=== PATIENT | male | born 1970 | race African-American/Black ===

== ENCOUNTER 2022-06-04 10:28 | Inpatient (IN) | payer OTHER ==
[2022-06-04 10:59] VITALS: BMI 36.2
[2022-06-04] MEDS ORDERED: NICOTINE POLACRILEX 2 MG GUM BC PRN (11:09)
[2022-06-04] MEDS ORDERED: LOPERAMIDE HCL 2 MG CAPSULE PO PRN (11:09)
[2022-06-04] MEDS ORDERED: guaiFENesin 200 MG/10 ML 10 ML UNIT-DOSE CUPS PO PRN (11:09)
[2022-06-04] MEDS ORDERED: BENZOCAINE/MENTHOL (CHLORASEPTIC ) LOZENGE MM PRN (11:09)
[2022-06-04] MEDS ORDERED: POLYETHYLENE GLYCOL (HEALTHYLAX) 3350 17 GM PACKET PO PRN (11:09)
[2022-06-04] MEDS ORDERED: MAGNESIUM HYDROX 2400MG/30ML ORAL SUSPENSION 30 ML CUP PO PRN (11:09)
[2022-06-04] MEDS ORDERED: P-EPHED 60MG/TRIPROLIDI 2.5MG TABLET PO PRN (11:09)
[2022-06-04] MEDS ORDERED: NICOTINE 10 MG CARTRIDGE (INHALER) IH PRN (11:09)
[2022-06-04] MEDS ORDERED: BENZOCAINE 28 GM HEMORRHOIDAL OINTMENT RC PRN (11:14)
[2022-06-04 15:41] LABS: HEMATOCRIT 40.2 % (35.4-49); HEMOGLOBIN 12.3 GM/dL (11.7-16.9); MCH 22.3 pg (25.7-33.7); MCHC 30.6 g/dl (32.0-35.9); MEAN CELL VOLUME 72.9 fl (80-96); MEAN PLT VOLUME 8.5 fl (7.5-11.1); PLATELET COUNT 197 10^3/uL (134-434); RBC 5.51 M/mm3 (4.00-5.60); RDW 14.6 % (11.9-15.9); WHITE BLOOD COUNT 6.2 K/mm3 (4.0-10.0)
[2022-06-04 15:45] LABS: ALBUMIN 3.7 g/dl (3.4-5.0); CALCIUM 9.5 mg/dL (8.5-10.1)
[2022-06-04 15:49] LABS: CREATININE 1.1 mg/dL (0.55-1.3)
[2022-06-04 15:50] LABS: BILIRUBIN,TOTAL 0.3 mg/dL (0.2-1); TOT PROT 7.8 g/dl (6.4-8.2)
[2022-06-04 16:17] LABS: SYPHILIS W/ RPR CONF NON-REACTIVE (NONREACTIVE)
[2022-06-04] MEDS: MAG HYDROX/AL HYDROX/SIMETH 30 ML UNIT-DOSE CUP PO PRN (20:21)
[2022-06-04 21:13] LABS: PH,URINE 5.5 (5.0-8.0); URINE APPEARANCE CLEAR; URINE BILIRUBIN NEGATIVE (NEGATIVE); URINE COLOR YELLOW; URINE GLUCOSE (UA) NEGATIVE (NEGATIVE); URINE KETONE TRACE (NEGATIVE); URINE LEUK ESTERASE NEGATIVE (NEGATIVE); URINE NITRITE NEGATIVE (NEGATIVE); URINE PROTEIN TRACE (NEGATIVE); URINE UROBILINOGEN 0.2 mg/dL (0.2-1.0)
[2022-06-04] MEDS: THIAMINE HCL 100 MG TABLET (FP) PO SCH (21:30)
[2022-06-04] MEDS: SENNOSIDES 8.6MG TABLET (FP) PO SCH (21:30)
[2022-06-04] MEDS: hydrOXYzine PAMOATE 25 MG CAPSULE (FP) PO PRN (21:30)
[2022-06-04] MEDS ORDERED: MELATONIN 5 MG TABLETS PO SCH (22:00)
[2022-06-05] MEDS: PRENATAL VITAMINS W/ FOLIC ACID TABLET (FP) PO SCH (09:55)
[2022-06-05] MEDS ORDERED: NICOTINE 7 MG/24 HOURS TOPICAL PATCH TD SCH (10:00)
[2022-06-05] MEDS: hydrOXYzine PAMOATE 25 MG CAPSULE (FP) PO PRN ×3 (10:37→23:50)
[2022-06-05] MEDS ORDERED: NICOTINE 7 MG/24 HOURS TOPICAL PATCH TD PRN (13:04)
[2022-06-05] MEDS: THIAMINE HCL 100 MG TABLET (FP) PO SCH (21:38)
[2022-06-05] MEDS: SUVOREXANT 10 MG TABLET PO PRN (21:40)
[2022-06-05] MEDS: SENNOSIDES 8.6MG TABLET (FP) PO SCH (21:41)
[2022-06-05] MEDS: MAG HYDROX/AL HYDROX/SIMETH 30 ML UNIT-DOSE CUP PO PRN (21:43)
[2022-06-06] MEDS: hydrOXYzine PAMOATE 25 MG CAPSULE (FP) PO PRN ×3 (06:16→15:27)
[2022-06-06] MEDS: PRENATAL VITAMINS W/ FOLIC ACID TABLET (FP) PO SCH (09:35)
[2022-06-06] MEDS: SENNOSIDES 8.6MG TABLET (FP) PO SCH (21:19)
[2022-06-06] MEDS: THIAMINE HCL 100 MG TABLET (FP) PO SCH (21:19)
[2022-06-06] MEDS: SUVOREXANT 10 MG TABLET PO PRN (21:20)
[2022-06-07] MEDS: hydrOXYzine PAMOATE 25 MG CAPSULE (FP) PO PRN ×3 (02:19→19:34)
[2022-06-07] MEDS: MAG HYDROX/AL HYDROX/SIMETH 30 ML UNIT-DOSE CUP PO PRN ×2 (06:49→14:12)
[2022-06-07] MEDS: PRENATAL VITAMINS W/ FOLIC ACID TABLET (FP) PO SCH (09:57)
[2022-06-07] MEDS ORDERED: ONDANSETRON *ODT* 4 MG TABLET SL PRN (11:48)
[2022-06-07] MEDS ORDERED: ONDANSETRON *ODT* 4 MG TABLET SL ONE (18:01)
[2022-06-07] MEDS: THIAMINE HCL 100 MG TABLET (FP) PO SCH (21:25)
[2022-06-07] MEDS: SENNOSIDES 8.6MG TABLET (FP) PO SCH (21:25)
[2022-06-07] MEDS ORDERED: SUVOREXANT 20 MG TABLET PO PRN (22:00)
[2022-06-08] MEDS: hydrOXYzine PAMOATE 25 MG CAPSULE (FP) PO PRN ×3 (03:06→19:57)
[2022-06-08] MEDS: PRENATAL VITAMINS W/ FOLIC ACID TABLET (FP) PO SCH (10:10)
[2022-06-08] MEDS: IBUPROFEN 400 MG TABLET (FP) PO PRN (10:11)
[2022-06-08] MEDS: THIAMINE HCL 100 MG TABLET (FP) PO SCH (21:03)
[2022-06-08] MEDS: QUEtiapine FUMARATE 100 MG TABLET (FP) PO PRN (21:03)
[2022-06-08] MEDS: SENNOSIDES 8.6MG TABLET (FP) PO SCH (21:03)
[2022-06-09] MEDS: hydrOXYzine PAMOATE 25 MG CAPSULE (FP) PO PRN ×3 (03:25→19:47)
[2022-06-09] MEDS: PRENATAL VITAMINS W/ FOLIC ACID TABLET (FP) PO SCH (10:16)
[2022-06-09] MEDS ORDERED: BUPRENORPHINE/NALOXONE 2 MG/0.5 MG FILM PACKET SL ONE (12:01)
[2022-06-09] MEDS: SENNOSIDES 8.6MG TABLET (FP) PO SCH (21:08)
[2022-06-09] MEDS: THIAMINE HCL 100 MG TABLET (FP) PO SCH (21:08)
[2022-06-09] MEDS: QUEtiapine FUMARATE 100 MG TABLET (FP) PO PRN (21:09)
[2022-06-10] MEDS: PRENATAL VITAMINS W/ FOLIC ACID TABLET (FP) PO SCH (09:47)
[2022-06-10] MEDS: hydrOXYzine PAMOATE 25 MG CAPSULE (FP) PO PRN (09:49)
[2022-06-10] MEDS ORDERED: BUPRENORPHINE/NALOXONE 2 MG/0.5 MG FILM PACKET SL SCH (10:00)
[2022-06-10] MEDS: QUEtiapine FUMARATE 100 MG TABLET (FP) PO PRN (21:32)
[2022-06-10] MEDS: SENNOSIDES 8.6MG TABLET (FP) PO SCH (21:32)
[2022-06-10] MEDS: BUPRENORPHINE/NALOXONE 2 MG/0.5 MG FILM PACKET SL SCH ×2 (21:32→22:07)
[2022-06-10] MEDS: THIAMINE HCL 100 MG TABLET (FP) PO SCH (21:33)
[2022-06-11] MEDS: PRENATAL VITAMINS W/ FOLIC ACID TABLET (FP) PO SCH (09:44)
[2022-06-11] MEDS: BUPRENORPHINE/NALOXONE 2 MG/0.5 MG FILM PACKET SL SCH ×2 (09:44→21:07)
[2022-06-11] MEDS: hydrOXYzine PAMOATE 25 MG CAPSULE (FP) PO PRN ×2 (09:45→13:51)
[2022-06-11] MEDS: SENNOSIDES 8.6MG TABLET (FP) PO SCH (21:07)
[2022-06-11] MEDS: THIAMINE HCL 100 MG TABLET (FP) PO SCH (21:08)
[2022-06-11] MEDS: QUEtiapine FUMARATE 100 MG TABLET (FP) PO PRN (21:08)
[2022-06-12] MEDS: hydrOXYzine PAMOATE 25 MG CAPSULE (FP) PO PRN (09:32)
[2022-06-12] MEDS: PRENATAL VITAMINS W/ FOLIC ACID TABLET (FP) PO SCH (09:32)
[2022-06-12] MEDS: BUPRENORPHINE/NALOXONE 2 MG/0.5 MG FILM PACKET SL SCH ×2 (09:32→21:06)
[2022-06-12] MEDS: SENNOSIDES 8.6MG TABLET (FP) PO SCH (21:05)
[2022-06-12] MEDS: QUEtiapine FUMARATE 100 MG TABLET (FP) PO PRN (21:05)
[2022-06-12] MEDS: THIAMINE HCL 100 MG TABLET (FP) PO SCH (21:06)
[2022-06-13] MEDS: BUPRENORPHINE/NALOXONE 2 MG/0.5 MG FILM PACKET SL SCH ×2 (09:34→21:03)
[2022-06-13] MEDS: PRENATAL VITAMINS W/ FOLIC ACID TABLET (FP) PO SCH (09:34)
[2022-06-13] MEDS: hydrOXYzine PAMOATE 25 MG CAPSULE (FP) PO PRN (09:35)
[2022-06-13] MEDS: SENNOSIDES 8.6MG TABLET (FP) PO SCH (21:03)
[2022-06-13] MEDS: THIAMINE HCL 100 MG TABLET (FP) PO SCH (21:03)
[2022-06-13] MEDS: QUEtiapine FUMARATE 100 MG TABLET (FP) PO PRN (21:05)
[2022-06-14] MEDS: BUPRENORPHINE/NALOXONE 2 MG/0.5 MG FILM PACKET SL SCH ×2 (09:35→21:07)
[2022-06-14] MEDS: hydrOXYzine PAMOATE 25 MG CAPSULE (FP) PO PRN (09:36)
[2022-06-14] MEDS: PRENATAL VITAMINS W/ FOLIC ACID TABLET (FP) PO SCH (09:36)
[2022-06-14] MEDS: SENNOSIDES 8.6MG TABLET (FP) PO SCH (21:07)
[2022-06-14] MEDS: THIAMINE HCL 100 MG TABLET (FP) PO SCH (21:07)
[2022-06-14] MEDS: QUEtiapine FUMARATE 100 MG TABLET (FP) PO PRN (21:09)
[2022-06-15] MEDS: BUPRENORPHINE/NALOXONE 2 MG/0.5 MG FILM PACKET SL SCH ×2 (09:39→21:05)
[2022-06-15] MEDS: hydrOXYzine PAMOATE 25 MG CAPSULE (FP) PO PRN (09:39)
[2022-06-15] MEDS: PRENATAL VITAMINS W/ FOLIC ACID TABLET (FP) PO SCH (09:39)
[2022-06-15] MEDS: QUEtiapine FUMARATE 100 MG TABLET (FP) PO PRN (21:05)
[2022-06-15] MEDS: SENNOSIDES 8.6MG TABLET (FP) PO SCH (21:05)
[2022-06-15] MEDS: THIAMINE HCL 100 MG TABLET (FP) PO SCH (21:06)
[2022-06-16] MEDS: BUPRENORPHINE/NALOXONE 2 MG/0.5 MG FILM PACKET SL SCH (09:44)
[2022-06-16] MEDS: PRENATAL VITAMINS W/ FOLIC ACID TABLET (FP) PO SCH (09:44)
[2022-06-16] MEDS: QUEtiapine FUMARATE 100 MG TABLET (FP) PO PRN (21:08)
[2022-06-16] MEDS: SENNOSIDES 8.6MG TABLET (FP) PO SCH (21:08)
[2022-06-16] MEDS: THIAMINE HCL 100 MG TABLET (FP) PO SCH (21:09)
[2022-06-16] MEDS: BUPRENORPHINE/NALOXONE 4 MG/1 MG FILM PACKET SL SCH (21:09)
[2022-06-16] MEDS: FLUOCINONIDE 0.05% CREAM (60 GM TUBE) TP SCH (23:24)
[2022-06-17] MEDS: PRENATAL VITAMINS W/ FOLIC ACID TABLET (FP) PO SCH (09:50)
[2022-06-17] MEDS: FLUOCINONIDE 0.05% CREAM (60 GM TUBE) TP SCH ×2 (09:50→21:05)
[2022-06-17] MEDS: BUPRENORPHINE/NALOXONE 2 MG/0.5 MG FILM PACKET SL SCH (09:51)
[2022-06-17] MEDS: hydrOXYzine PAMOATE 25 MG CAPSULE (FP) PO PRN (09:51)
[2022-06-17] MEDS: QUEtiapine FUMARATE 100 MG TABLET (FP) PO PRN (21:05)
[2022-06-17] MEDS: SENNOSIDES 8.6MG TABLET (FP) PO SCH (21:05)
[2022-06-17] MEDS: THIAMINE HCL 100 MG TABLET (FP) PO SCH (21:05)
[2022-06-17] MEDS: BUPRENORPHINE/NALOXONE 4 MG/1 MG FILM PACKET SL SCH (21:05)
[2022-06-18] MEDS: FLUOCINONIDE 0.05% CREAM (60 GM TUBE) TP SCH ×2 (09:43→21:27)
[2022-06-18] MEDS: PRENATAL VITAMINS W/ FOLIC ACID TABLET (FP) PO SCH (09:43)
[2022-06-18] MEDS: BUPRENORPHINE/NALOXONE 2 MG/0.5 MG FILM PACKET SL SCH (09:43)
[2022-06-18] MEDS: IBUPROFEN 400 MG TABLET (FP) PO PRN (11:49)
[2022-06-18] MEDS: THIAMINE HCL 100 MG TABLET (FP) PO SCH (21:01)
[2022-06-18] MEDS: QUEtiapine FUMARATE 100 MG TABLET (FP) PO PRN (21:01)
[2022-06-18] MEDS: SENNOSIDES 8.6MG TABLET (FP) PO SCH (21:01)
[2022-06-18] MEDS: BUPRENORPHINE/NALOXONE 4 MG/1 MG FILM PACKET SL SCH (21:02)
[2022-06-19] MEDS: PRENATAL VITAMINS W/ FOLIC ACID TABLET (FP) PO SCH (09:34)
[2022-06-19] MEDS: BUPRENORPHINE/NALOXONE 2 MG/0.5 MG FILM PACKET SL SCH (09:34)
[2022-06-19] MEDS: FLUOCINONIDE 0.05% CREAM (60 GM TUBE) TP SCH ×2 (09:35→21:01)
[2022-06-19] MEDS: BUPRENORPHINE/NALOXONE 4 MG/1 MG FILM PACKET SL SCH (21:00)
[2022-06-19] MEDS: QUEtiapine FUMARATE 100 MG TABLET (FP) PO PRN (21:00)
[2022-06-19] MEDS: THIAMINE HCL 100 MG TABLET (FP) PO SCH (21:00)
[2022-06-19] MEDS: SENNOSIDES 8.6MG TABLET (FP) PO SCH (21:00)
[2022-06-20] MEDS: PRENATAL VITAMINS W/ FOLIC ACID TABLET (FP) PO SCH (09:48)
[2022-06-20] MEDS: BUPRENORPHINE/NALOXONE 2 MG/0.5 MG FILM PACKET SL SCH (09:49)
[2022-06-20] MEDS: FLUOCINONIDE 0.05% CREAM (60 GM TUBE) TP SCH ×2 (09:49→21:31)
[2022-06-20] MEDS: BUPRENORPHINE/NALOXONE 4 MG/1 MG FILM PACKET SL SCH (21:10)
[2022-06-20] MEDS: THIAMINE HCL 100 MG TABLET (FP) PO SCH (21:11)
[2022-06-20] MEDS: QUEtiapine FUMARATE 100 MG TABLET (FP) PO PRN (21:11)
[2022-06-20] MEDS: SENNOSIDES 8.6MG TABLET (FP) PO SCH (21:11)
[2022-06-21] MEDS: PRENATAL VITAMINS W/ FOLIC ACID TABLET (FP) PO SCH (09:28)
[2022-06-21] MEDS: BUPRENORPHINE/NALOXONE 2 MG/0.5 MG FILM PACKET SL SCH (09:29)
[2022-06-21] MEDS: FLUOCINONIDE 0.05% CREAM (60 GM TUBE) TP SCH ×2 (09:29→21:06)
[2022-06-21] MEDS: SENNOSIDES 8.6MG TABLET (FP) PO SCH (21:05)
[2022-06-21] MEDS: QUEtiapine FUMARATE 100 MG TABLET (FP) PO PRN (21:05)
[2022-06-21] MEDS: THIAMINE HCL 100 MG TABLET (FP) PO SCH (21:05)
[2022-06-21] MEDS: BUPRENORPHINE/NALOXONE 4 MG/1 MG FILM PACKET SL SCH (21:05)
[2022-06-22] MEDS: FLUOCINONIDE 0.05% CREAM (60 GM TUBE) TP SCH ×2 (10:02→21:01)
[2022-06-22] MEDS: hydrOXYzine PAMOATE 25 MG CAPSULE (FP) PO PRN (10:02)
[2022-06-22] MEDS: PRENATAL VITAMINS W/ FOLIC ACID TABLET (FP) PO SCH (10:02)
[2022-06-22] MEDS: BUPRENORPHINE/NALOXONE 2 MG/0.5 MG FILM PACKET SL SCH (10:02)
[2022-06-22] MEDS: QUEtiapine FUMARATE 100 MG TABLET (FP) PO PRN (21:02)
[2022-06-22] MEDS: SENNOSIDES 8.6MG TABLET (FP) PO SCH (21:02)
[2022-06-22] MEDS: THIAMINE HCL 100 MG TABLET (FP) PO SCH (21:02)
[2022-06-22] MEDS: BUPRENORPHINE/NALOXONE 4 MG/1 MG FILM PACKET SL SCH (21:02)
[2022-06-23] MEDS: PRENATAL VITAMINS W/ FOLIC ACID TABLET (FP) PO SCH (10:12)
[2022-06-23] MEDS: BUPRENORPHINE/NALOXONE 2 MG/0.5 MG FILM PACKET SL SCH (10:12)
[2022-06-23] MEDS: hydrOXYzine PAMOATE 25 MG CAPSULE (FP) PO PRN ×2 (10:15→21:04)
[2022-06-23] MEDS: FLUOCINONIDE 0.05% CREAM (60 GM TUBE) TP SCH ×2 (10:37→21:04)
[2022-06-23] MEDS: THIAMINE HCL 100 MG TABLET (FP) PO SCH (21:01)
[2022-06-23] MEDS: QUEtiapine FUMARATE 100 MG TABLET (FP) PO PRN (21:02)
[2022-06-23] MEDS: SENNOSIDES 8.6MG TABLET (FP) PO SCH (21:02)
[2022-06-23] MEDS: ACETAMINOPHEN 325 MG TABLET (FP) PO PRN (21:02)
[2022-06-23] MEDS: BUPRENORPHINE/NALOXONE 4 MG/1 MG FILM PACKET SL SCH (21:04)
[2022-06-24] MEDS: BUPRENORPHINE/NALOXONE 2 MG/0.5 MG FILM PACKET SL SCH (09:56)
[2022-06-24] MEDS: PRENATAL VITAMINS W/ FOLIC ACID TABLET (FP) PO SCH (09:56)
[2022-06-24] MEDS: hydrOXYzine PAMOATE 25 MG CAPSULE (FP) PO PRN (09:57)
[2022-06-24] MEDS: FLUOCINONIDE 0.05% CREAM (60 GM TUBE) TP SCH ×2 (10:17→21:01)
[2022-06-24] MEDS: QUEtiapine FUMARATE 100 MG TABLET (FP) PO PRN (21:01)
[2022-06-24] MEDS: SENNOSIDES 8.6MG TABLET (FP) PO SCH (21:01)
[2022-06-24] MEDS: THIAMINE HCL 100 MG TABLET (FP) PO SCH (21:01)
[2022-06-24] MEDS: BUPRENORPHINE/NALOXONE 4 MG/1 MG FILM PACKET SL SCH (21:02)
[2022-06-25] MEDS: PRENATAL VITAMINS W/ FOLIC ACID TABLET (FP) PO SCH (09:55)
[2022-06-25] MEDS: BUPRENORPHINE/NALOXONE 2 MG/0.5 MG FILM PACKET SL SCH (09:55)
[2022-06-25] MEDS: FLUOCINONIDE 0.05% CREAM (60 GM TUBE) TP SCH ×2 (09:55→21:05)
[2022-06-25] MEDS: hydrOXYzine PAMOATE 25 MG CAPSULE (FP) PO PRN ×2 (09:56→18:55)
[2022-06-25] MEDS: THIAMINE HCL 100 MG TABLET (FP) PO SCH (21:03)
[2022-06-25] MEDS: QUEtiapine FUMARATE 100 MG TABLET (FP) PO PRN (21:03)
[2022-06-25] MEDS: SENNOSIDES 8.6MG TABLET (FP) PO SCH (21:03)
[2022-06-25] MEDS: BUPRENORPHINE/NALOXONE 4 MG/1 MG FILM PACKET SL SCH (21:04)
[2022-06-26] MEDS: BUPRENORPHINE/NALOXONE 2 MG/0.5 MG FILM PACKET SL SCH (09:37)
[2022-06-26] MEDS: PRENATAL VITAMINS W/ FOLIC ACID TABLET (FP) PO SCH (09:37)
[2022-06-26] MEDS: FLUOCINONIDE 0.05% CREAM (60 GM TUBE) TP SCH ×2 (09:38→21:04)
[2022-06-26] MEDS: hydrOXYzine PAMOATE 25 MG CAPSULE (FP) PO PRN (17:04)
[2022-06-26] MEDS: QUEtiapine FUMARATE 100 MG TABLET (FP) PO PRN (21:02)
[2022-06-26] MEDS: SENNOSIDES 8.6MG TABLET (FP) PO SCH (21:02)
[2022-06-26] MEDS: THIAMINE HCL 100 MG TABLET (FP) PO SCH (21:03)
[2022-06-26] MEDS: DOCUSATE SODIUM 100 MG CAPSULE (FP) PO PRN (21:03)
[2022-06-26] MEDS: BUPRENORPHINE/NALOXONE 4 MG/1 MG FILM PACKET SL SCH (21:03)
[2022-06-27] MEDS: PRENATAL VITAMINS W/ FOLIC ACID TABLET (FP) PO SCH (09:33)
[2022-06-27] MEDS: FLUOCINONIDE 0.05% CREAM (60 GM TUBE) TP SCH ×2 (09:33→21:04)
[2022-06-27] MEDS: BUPRENORPHINE/NALOXONE 2 MG/0.5 MG FILM PACKET SL SCH (09:33)
[2022-06-27] MEDS: hydrOXYzine PAMOATE 25 MG CAPSULE (FP) PO PRN ×3 (09:34→18:43)
[2022-06-27] MEDS: DOCUSATE SODIUM 100 MG CAPSULE (FP) PO PRN (18:44)
[2022-06-27] MEDS: THIAMINE HCL 100 MG TABLET (FP) PO SCH (21:02)
[2022-06-27] MEDS: QUEtiapine FUMARATE 100 MG TABLET (FP) PO PRN (21:02)
[2022-06-27] MEDS: SENNOSIDES 8.6MG TABLET (FP) PO SCH (21:02)
[2022-06-27] MEDS: BUPRENORPHINE/NALOXONE 4 MG/1 MG FILM PACKET SL SCH (21:03)
[2022-06-28] MEDS: PRENATAL VITAMINS W/ FOLIC ACID TABLET (FP) PO SCH (09:46)
[2022-06-28] MEDS: BUPRENORPHINE/NALOXONE 2 MG/0.5 MG FILM PACKET SL SCH (09:47)
[2022-06-28] MEDS: DOCUSATE SODIUM 100 MG CAPSULE (FP) PO PRN ×2 (09:47→21:00)
[2022-06-28] MEDS: hydrOXYzine PAMOATE 25 MG CAPSULE (FP) PO PRN ×2 (09:47→21:00)
[2022-06-28] MEDS: FLUOCINONIDE 0.05% CREAM (60 GM TUBE) TP SCH ×2 (09:48→21:02)
[2022-06-28] MEDS: QUEtiapine FUMARATE 100 MG TABLET (FP) PO PRN (21:00)
[2022-06-28] MEDS: SENNOSIDES 8.6MG TABLET (FP) PO SCH (21:00)
[2022-06-28] MEDS: THIAMINE HCL 100 MG TABLET (FP) PO SCH (21:00)
[2022-06-28] MEDS: BUPRENORPHINE/NALOXONE 4 MG/1 MG FILM PACKET SL SCH (21:01)
[2022-06-29] MEDS: FLUOCINONIDE 0.05% CREAM (60 GM TUBE) TP SCH ×2 (09:51→21:02)
[2022-06-29] MEDS: PRENATAL VITAMINS W/ FOLIC ACID TABLET (FP) PO SCH (09:51)
[2022-06-29] MEDS: BUPRENORPHINE/NALOXONE 2 MG/0.5 MG FILM PACKET SL SCH (09:51)
[2022-06-29] MEDS: DOCUSATE SODIUM 100 MG CAPSULE (FP) PO PRN (09:52)
[2022-06-29] MEDS: hydrOXYzine PAMOATE 25 MG CAPSULE (FP) PO PRN (09:52)
[2022-06-29] MEDS: MAG HYDROX/AL HYDROX/SIMETH 30 ML UNIT-DOSE CUP PO PRN (14:01)
[2022-06-29] MEDS: SENNOSIDES 8.6MG TABLET (FP) PO SCH (21:01)
[2022-06-29] MEDS: THIAMINE HCL 100 MG TABLET (FP) PO SCH (21:02)
[2022-06-29] MEDS: QUEtiapine FUMARATE 100 MG TABLET (FP) PO PRN (21:02)
[2022-06-29] MEDS: BUPRENORPHINE/NALOXONE 4 MG/1 MG FILM PACKET SL SCH (21:02)
[2022-06-30 07:02] VITALS: RESP 18
[2022-06-30] MEDS: PRENATAL VITAMINS W/ FOLIC ACID TABLET (FP) PO SCH (10:03)
[2022-06-30] MEDS: hydrOXYzine PAMOATE 25 MG CAPSULE (FP) PO PRN ×2 (10:03→21:00)
[2022-06-30] MEDS: FLUOCINONIDE 0.05% CREAM (60 GM TUBE) TP SCH ×2 (10:04→21:02)
[2022-06-30] MEDS: BUPRENORPHINE/NALOXONE 2 MG/0.5 MG FILM PACKET SL SCH (10:04)
[2022-06-30] MEDS: THIAMINE HCL 100 MG TABLET (FP) PO SCH (21:00)
[2022-06-30] MEDS: DOCUSATE SODIUM 100 MG CAPSULE (FP) PO PRN (21:00)
[2022-06-30] MEDS: SENNOSIDES 8.6MG TABLET (FP) PO SCH (21:00)
[2022-06-30] MEDS: QUEtiapine FUMARATE 100 MG TABLET (FP) PO PRN (21:00)
[2022-06-30] MEDS: BUPRENORPHINE/NALOXONE 4 MG/1 MG FILM PACKET SL SCH (21:02)
[2022-07-01] MEDS: PRENATAL VITAMINS W/ FOLIC ACID TABLET (FP) PO SCH (09:56)
[2022-07-01] MEDS: FLUOCINONIDE 0.05% CREAM (60 GM TUBE) TP SCH ×2 (09:56→21:02)
[2022-07-01] MEDS: BUPRENORPHINE/NALOXONE 2 MG/0.5 MG FILM PACKET SL SCH (09:56)
[2022-07-01] MEDS: hydrOXYzine PAMOATE 25 MG CAPSULE (FP) PO PRN ×2 (09:57→21:00)
[2022-07-01] MEDS: MAG HYDROX/AL HYDROX/SIMETH 30 ML UNIT-DOSE CUP PO PRN (13:30)
[2022-07-01] MEDS: ACETAMINOPHEN 325 MG TABLET (FP) PO PRN (21:00)
[2022-07-01] MEDS: SENNOSIDES 8.6MG TABLET (FP) PO SCH (21:00)
[2022-07-01] MEDS: DOCUSATE SODIUM 100 MG CAPSULE (FP) PO PRN (21:00)
[2022-07-01] MEDS: QUEtiapine FUMARATE 100 MG TABLET (FP) PO PRN (21:00)
[2022-07-01] MEDS: THIAMINE HCL 100 MG TABLET (FP) PO SCH (21:00)
[2022-07-01] MEDS: BUPRENORPHINE/NALOXONE 4 MG/1 MG FILM PACKET SL SCH (21:02)
[2022-07-02 07:05] VITALS: BP 145/83; PULSE 70; TEMP 98.9
[2022-07-02] MEDS: FLUOCINONIDE 0.05% CREAM (60 GM TUBE) TP SCH (09:01)
[2022-07-02] MEDS: PRENATAL VITAMINS W/ FOLIC ACID TABLET (FP) PO SCH (09:01)
[2022-07-02] MEDS: BUPRENORPHINE/NALOXONE 2 MG/0.5 MG FILM PACKET SL SCH (09:01)
[2022-07-02] MEDS: hydrOXYzine PAMOATE 25 MG CAPSULE (FP) PO PRN (09:01)
== END 2022-07-02 09:17 | disposition home or self-care (01) | DRG 772 ==
LOC: YASAS 10:28 → Y3W 15:45
PROVIDERS: ADMIT Allergy & Immunology; ATTEND Psychiatry & Neurology Pain Medicine
PROC: HZ42ZZZ Group Counseling for Substance Abuse Treatment, Cognitive-Behavioral (ICD-10-PCS; principal; 2022-06-04)
DX: F11.20 Opioid dependence, uncomplicated (principal); F10.20 Alcohol dependence, uncomplicated; F13.20 Sedative, hypnotic or anxiolytic dependence, uncomplicated; F17.210 Nicotine dependence, cigarettes, uncomplicated; F19.282 Other psychoactive substance dependence with psychoactive substance-induced sleep disorder; F19.280 Other psychoactive substance dependence with psychoactive substance-induced anxiety disorder; F19.24 Other psychoactive substance dependence with psychoactive substance-induced mood disorder; G47.00 Insomnia, unspecified; K64.9 Unspecified hemorrhoids; L85.3 Xerosis cutis; M54.30 Sciatica, unspecified side; R11.2 Nausea with vomiting, unspecified; E66.9 Obesity, unspecified; Z68.36 Body mass index [BMI] 36.0-36.9, adult
CPT/HCPCS: 36415; 80053; 81003; 85027; 86780; 86803; 93005; 93010; C9803-CS; Q0162; U0003; U0005